=== PATIENT | male | born 1995 | race Hispanic/Latino ===

== ENCOUNTER 2016-06-23 22:09 | Emergency (ER) | payer SELFPAY ==
[~2016-06-23] VITALS: Ht 172.7 cm; Wt 67.8 kg
[~2016-06-23 22:09] MED LIST: AUGMENTIN875 MG PO; LORTAB5 PO; NAPROSYN375 MG PO; NO HOME MEDS; ROBITUSS11 OR; TAM75CAP PO
[2016-06-24] MEDS ORDERED: ULTRAM50 M1 PO (00:16)
[2016-06-24] MEDS ORDERED: AMOXICILLIN500 MG PO (00:16)
[2016-06-24 01:10] VITALS: BP 127/66
== END 2016-06-24 01:10 | disposition home or self-care (01) | DRG 605 ==
LOC: ED 22:09
PROC: 0HQFXZZ Repair Right Hand Skin, External Approach (ICD-10-PCS; principal; 2016-06-23)
DX: S61.011A Laceration without foreign body of right thumb without damage to nail, initial encounter (principal); S61.411A Laceration without foreign body of right hand, initial encounter; W45.8XXA Other foreign body or object entering through skin, initial encounter; W22.8XXA Striking against or struck by other objects, initial encounter; Y93.89 Activity, other specified; Y92.89 Other specified places as the place of occurrence of the external cause

== ENCOUNTER 2016-06-25 09:33 | Emergency (ER) | payer SELFPAY ==
[~2016-06-25] VITALS: Ht 172.7 cm; Wt 70.0 kg
[~2016-06-25 09:33] MED LIST changes: +AMOXICILLIN500 MG PO; +ULTRAM50 M1 PO
[2016-06-25 10:31] VITALS: BP 112/68
== END 2016-06-25 10:35 | disposition home or self-care (01) | DRG 950 ==
LOC: ED 09:33
DX: S61.011D Laceration without foreign body of right thumb without damage to nail, subsequent encounter (principal); S61.411D Laceration without foreign body of right hand, subsequent encounter